=== PATIENT | female | born 1950 | race Caucasian/White ===

== ENCOUNTER 2022-08-13 13:27 | Observation (INO) | payer MEDICARE ==
--- NOTE | 2022-08-13 13:36 | ERPHSYRPT ---
- History of Present Illness Time Seen by Provider: 08/13/22 13:36 Source: patient Exam Limitations: no limitations Physician History: This is a 71-year-old obese white female who was seen at her insurance company yesterday and had physical exam and was found to have significant high blood pressure. She returns today and the blood pressure was even higher. Therefore, they called Dr. Calle's office who recommended that the patient come to the emergency department. The patient's symptoms are mild headache. She denies chest pain. She denies visual changes. The only medication she is taking is Zetia. She does take vitamin D as well. Patient has a history of h yperlipidemia. Timing/Duration: yesterday Severity: moderate Associated Symptoms: headaches (Mild global/diffuse), No abdominal pain, No shortness of breath, No chest pain Allergies/Adverse Reactions: No Known Drug Allergies Allergy (Unverified 08/13/22 13:45) Home Medications: Ezetimibe 10 mg [Zetia 10 MG] 1 tab PO DAILY 08/13/22 [History] Travel Risk - International Travel Have you traveled outside of the country in past 3 weeks: No - Coronavirus Screening Are you exhibiting any of the following symptoms?: No Close contact with a COVID-19 positive Pt in past 14-21 Days: No - Review of Systems Constitutional: No Symptoms Eyes: No Symptoms Ears, Nose, & Throat: No Symptoms Respiratory: No Symptoms Cardiac: No Symptoms Abdominal/Gastrointestinal: No Symptoms Genitourinary Symptoms: No Symptoms Musculoskeletal: No Symptoms Skin: No Symptoms Neurological: No Symptoms Psychological: No Symptoms Endocrine: No Symptoms Hematologic/Lymphatic: No Symptoms Immunological/Allergic: No Symptoms All Other Systems: Reviewed and Negative - Past Medical History Pertinent Past Medical History: Yes - Past Surgical History Past Surgical History: Yes - Nursing Vital Signs Nursing Vital Signs: Initial Vital Signs Temperature 97.9 F 08/13/22 13:46 Pulse Rate 100 H 08/13/22 13:46 Respiratory Rate 19 08/13/22 13:46 Blood Pressure 246/153 08/13/22 13:46 Pain Scale Pain Intensity 0 - Physical Exam General Appearance: no apparent distress, alert, anxiety, obese Eye Exam: PERRL/EOMI, eyes nml inspection Ears, Nose, Throat Exam: normal ENT inspection, moist mucous membranes Neck Exam: normal inspection, non-tender, supple, full range of motion Respiratory Exam: normal breath sounds, lungs clear, airway intact, No chest tenderness, No respiratory distress Cardiovascular Exam: regular rate/rhythm, normal heart sounds, normal peripheral pulses Gastrointestinal/Abdomen Exam: soft, normal bowel sounds, No tenderness Pelvic Exam: not done Rectal Exam: not done Back Exam: normal inspection, normal range of motion, No CVA tenderness, No vertebral tenderness Extremity Exam: normal inspection, normal range of motion, pelvis stable Neurologic Exam: alert, oriented x 3, cooperative, bindery leadperson II-XII nml as tested, normal mood/affect, nml cerebellar function, nml station & gait, sensation nml Skin Exam: normal color, warm, dry Lymphatic Exam: No adenopathy SpO2 Interpretation: normal O2 Delivery: Room Air - Course Nursing assessment & vital signs reviewed: Yes EKG Interpreted by Me: RATE (94), Sinus Rhythm, NORMAL AXIS, NORMAL INTERVALS, NORMAL QRS, NORMAL ST-T, Other (No acute ischemic changes on today's twelve-lead EKG.) Ordered Tests: Active Orders 24 hr Category Date Time Status Hi Ranger Operator STAT Care 08/13/22 14:00 Active EKG-ER Only STAT Care 08/13/22 14:00 Active IV Insertion STAT Care 08/13/22 14:00 Active Pulse Oximetry (ED) STAT Care 08/13/22 14:00 Active HEAD WITHOUT CONTRAST [CT] Stat Exams 08/13/22 13:59 Completed CBC W DIFF Stat Lab 08/13/22 13:45 Completed CMP Stat Lab 08/13/22 13:45 Completed MAGNESIUM Stat Lab 08/13/22 13:45 Completed TROPONIN Q4H Lab 08/13/22 13:45 Completed TROPONIN Q4H Lab 08/13/22 18:00 Ordered TROPONIN Q4H Lab 08/13/22 22:00 Ordered Transfer Order Routine Transfer 08/13/22 Ordered Medication Summary Discontinued Medications Generic Name Dose Route Start Last Admin Trade Name Freq PRN Reason Stop Dose Admin Hydralazine HCl 10 mg 08/13/22 15:47 08/13/22 15:52 Hydralazine Hcl 20 Mg/Ml Vial IV 08/13/22 15:48 10 mg STAT ONE Administration Hydralazine HCl Confirm 08/13/22 15:50 Hydralazine Hcl 20 Mg/Ml Vial Administered 08/13/22 15:51 Dose 20 mg .ROUTE .STK-MED ONE Labetalol HCl 10 mg 08/13/22 14:00 08/13/22 14:04 Labetalol Hcl 20 Mg/4 Ml Disp.Syringe IV 08/13/22 14:01 10 mg STAT ONE Administration Labetalol HCl Confirm 08/13/22 14:04 Labetalol Hcl 20 Mg/4 Ml Disp.Syringe Administered 08/13/22 14:05 Dose 20 mg IV .STK-MED ONE Labetalol HCl 10 mg 08/13/22 14:37 08/13/22 14:41 Labetalol Hcl 20 Mg/4 Ml Disp.Syringe IV 08/13/22 14:38 10 mg STAT ONE Administration Labetalol HCl Confirm 08/13/22 14:41 Labetalol Hcl 20 Mg/4 Ml Disp.Syringe Administered 08/13/22 14:42 Dose 20 mg IV .STK-MED ONE Lab/Rad Data: Laboratory Result Diagrams 08/13/22 13:45 08/13/22 13:45 Laboratory Results 08/13/22 08/13/22 Range/Units 13:45 13:45 WBC 7.2 (4.0-10.5) x10^3/uL RBC 4.67 (4.1-5.4) x10^6/uL Hgb 14.2 (12.0-16.0) g/dL Hct 42.6 (35-47) % MCV 91.2 (78-100) fL MCH 30.4 (26-32) pg MCHC 33.3 (32-36) g/dL RDW 12.4 (11.5-14.0) % Plt Count 243 (150-450) x10^3/uL MPV 9.7 (7.5-11.0) fL Gran % 43.0 (36.0-66.0) % Immature Gran % (Auto) 0.3 (0.00-0.4) % Nucleat RBC Rel Count 0.0 (0.00-0.1) % Eos # (Auto) 0.19 (0-0.5) x10^3/uL Immature Gran # (Auto) 0.02 (0.00-0.03) x10^3u/L Absolute Lymphs (auto) 3.17 (1.0-4.6) x10^3/uL Absolute Monos (auto) 0.65 (0.0-1.3) x10^3/uL Absolute Nucleated RBC 0.00 (0.00-0.01) x10^3u/L Lymphocytes % 44.2 H (24.0-44.0) % Monocytes % 9.1 (0.0-12.0) % Eosinophils % 2.6 (0.00-5.0) % Basophils % 0.8 (0.0-0.4) % Absolute Granulocytes 3.08 (1.4-6.9) x10^3/uL Basophils # 0.06 (0-0.4) x10^3/uL Sodium 138 (137-145) mmol/L Potassium 4.3 (3.5-5.1) mmol/L Chloride 103 (98-107) mmol/L Carbon Dioxide 26 (22-30) mmol/L Anion Gap 13.7 (5-15) MEQ/L BUN 23 H (7-17) mg/dL Creatinine 1.06 H (0.52-1.04) mg/dL Estimated GFR 54.3 ML/MIN Glucose 92 (74-106) mg/dL Calcium 10.6 H (8.4-10.2) mg/dL Magnesium 2.1 (1.6-2.3) mg/dL Total Bilirubin 0.50 (0.2-1.3) mg/dL AST 33 (14-36) U/L ALT 27 (0-35) U/L Alkaline Phosphatase 86 (38-126) U/L Troponin I < 0.012 (0.000-0.034) ng/mL Serum Total Protein 7.6 (6.3-8.2) g/dL Albumin 4.4 (3.5-5.0) g/dL - Progress Progress: improved, re-examined Progress Note: 08/13/22 15:21 CT scan of the head without contrast was interpreted by the radiologist. I reviewed the impression. This study shows a nonacute senile brain. 08/13/22 16:00 This patient's medical issue is 1 of high complexity. The level of the complexity and the work-up performed is based on the review of the patient's p ast medical history, review of the patient's medication list, review of the patient's drug allergy list, history of present illness and physical findings on examination. Work-up includes a CBC, CMP, twelve-lead EKG, troponin level, CAT scan of the head. The work-up results were reviewed by me. I interpreted them. This patient, despite labetalol intravenously on 2 different occasions is having persistently elevated blood pressure with minimal symptoms. Her headache decreased when her systolic blood pressure was in the 180s. She has no visual changes or evidence of any organ damage at this time secondary to the high blood pressure. Her remainder of her work-up is essentially negative. I did speak with Dr. Sanchez, the hospitalist covering for unassigned patients. He accepted this patient for placement in observation on telemetry. We will place her on scheduled antihypertensive agent intravenously and keep her monitored. We will repeat a CMP and CBC in the morning as well as a twelve-lead EKG. Discussed with .: Chantal Counseled pt/family regarding: lab results, diagnosis, rad results Medical Desision Making - Independent Historian Additional History obtained from: Spouse - Discussion of managment Care discussed with:: on-call "doc" Reviewed:: Test results, Need for additional workup Agreed on:: Treatment plan, decision to admit - Diagnostic Testing Diagnostic test were ordered, analyzed, and reviewed by me: Yes Radiological Interpretation: Reviewed by me, Teleradiologist Report - Risk of complications The pt has a high risk of morbidity or mortality based on: Decision regarding hospitilization or escalation of hosp level of care - Departure Departure Disposition: Observation Clinical Impression: Hypertensive urgency Condition: Fair Critical Care Time: Yes Critical Care Time(excluding separately billable procedures): Critical 30-74 mins (45 minutes) Referrals: JOSE E CALLE MD [Primary Care Provider] - Follow up/PCP as directed
[2022-08-13] MEDS ORDERED: TRANDATE 20 MG/4 ML SYRINGE IV ONE ×4 (14:00→14:41)
[2022-08-13 14:04] LABS: Absolute Neutrophil Ct (ANC) 3.08 x10^3/uL (1.4-6.9); BASOPHIL % 0.8 % (0.0-0.4); Basophil (Absolute #) 0.06 x10^3/uL (0-0.4); Eosinophil % 2.6 % (0.00-5.0); Eosinophil (Absolute #) 0.19 x10^3/uL (0-0.5); Hematocrit 42.6 % (35-47); Hemoglobin 14.2 g/dL (12.0-16.0); IMMATURE GRAN # 0.02 x10^3u/L (0.00-0.03); IMMATURE GRAN % 0.3 % (0.00-0.4); Lymphocyte (Absolute #) 3.17 x10^3/uL (1.0-4.6); Lymphocytes % 44.2 % (24.0-44.0); Mean Cell Volume 91.2 fL (78-100); Mean Corpuscular Hemoglobin 30.4 pg (26-32); Mean Corpuscular Hgb Concent. 33.3 g/dL (32-36); Mean Platelet Volume 9.7 fL (7.5-11.0); Monocyte (Absolute #) 0.65 x10^3/uL (0.0-1.3); Monocytes % 9.1 % (0.0-12.0); Platelet Count 243 x10^3/uL (150-450); Red Blood Count 4.67 x10^6/uL (4.1-5.4); Red Cell Distribution Width 12.4 % (11.5-14.0); White Blood Count 7.2 x10^3/uL (4.0-10.5)
[2022-08-13 14:29] LABS: ALBUMIN 4.4 g/dL (3.5-5.0); ALKALINE PHOSPHATASE 86 U/L (38-126); ANION GAP 13.7 MEQ/L (5-15); BLOOD UREA NITROGEN 23 mg/dL (7-17); CHLORIDE 103 mmol/L (98-107); Calcium 10.6 mg/dL (8.4-10.2); Carbon Dioxide 26 mmol/L (22-30); Creatinine 1 1.06 mg/dL (0.52-1.04); EST GLOMERULAR FILTRATION RATE 54.3 ML/MIN; Glucose 92 mg/dL (74-106); MAGNESIUM 2.1 mg/dL (1.6-2.3); Potassium 4.3 mmol/L (3.5-5.1); SGOT/AST 33 U/L (14-36); SGPT/ALT 27 U/L (0-35); SODIUM 138 mmol/L (137-145); TROPONIN < 0.012 ng/mL (0.000-0.034); Total Protein 7.6 g/dL (6.3-8.2)
--- NOTE | 2022-08-13 14:39 | XRAY ---
Indication: Headache. Elevated blood pressure. Multiple contiguous axial images obtained through the head without contrast. Comparison: None Age-appropriate global atrophy and mild periventricular degenerative micro-ischemia bilaterally. No acute intracranial hemorrhage, abnormal extra-axial fluid collection, or mass effect. Fourth ventricle is midline without hydrocephalus. Bony calvarium intact. Visualized paranasal sinuses and mastoid air cells are clear. Impression: Nonacute senile brain.
[2022-08-13] MEDS ORDERED: APRESOLINE 20 MG/ML INJ IV ONE (15:47)
[2022-08-13] MEDS ORDERED: APRESOLINE 20 MG/ML INJ ONE (15:50)
[2022-08-13] MEDS ORDERED: Zofran 4 MG/2 ML VIAL IV PRN (17:58)
[2022-08-13] MEDS: APRESOLINE 20 MG/ML INJ IV PRN (20:29)
[2022-08-13] MEDS: TYLENOL 325 MG PO PRN (20:39)
[2022-08-14 04:45] LABS: Absolute Neutrophil Ct (ANC) 3.48 x10^3/uL (1.4-6.9); BASOPHIL % 0.6 % (0.0-0.4); Basophil (Absolute #) 0.04 x10^3/uL (0-0.4); Eosinophil % 1.4 % (0.00-5.0); Eosinophil (Absolute #) 0.09 x10^3/uL (0-0.5); Hematocrit 42.6 % (35-47); Hemoglobin 13.7 g/dL (12.0-16.0); IMMATURE GRAN # 0.01 x10^3u/L (0.00-0.03); IMMATURE GRAN % 0.2 % (0.00-0.4); Lymphocyte (Absolute #) 2.25 x10^3/uL (1.0-4.6); Lymphocytes % 34.7 % (24.0-44.0); Mean Cell Volume 93.2 fL (78-100); Mean Corpuscular Hgb Concent. 32.2 g/dL (32-36); Mean Platelet Volume 9.6 fL (7.5-11.0); Monocyte (Absolute #) 0.61 x10^3/uL (0.0-1.3); Monocytes % 9.4 % (0.0-12.0); Neutrophil % 53.7 % (36.0-66.0); Platelet Count 217 x10^3/uL (150-450); Red Blood Count 4.57 x10^6/uL (4.1-5.4); Red Cell Distribution Width 12.6 % (11.5-14.0); White Blood Count 6.5 x10^3/uL (4.0-10.5)
[2022-08-14 05:39] LABS: ALBUMIN 4.1 g/dL (3.5-5.0); ANION GAP 14.7 MEQ/L (5-15); BILIRUBIN,TOTAL 0.5 mg/dL (0.2-1.3); Creatinine 1 1.05 mg/dL (0.52-1.04); EST GLOMERULAR FILTRATION RATE 54.9 ML/MIN; Potassium 3.9 mmol/L (3.5-5.1); Total Protein 7.4 g/dL (6.3-8.2)
[2022-08-14] MEDS: APRESOLINE 20 MG/ML INJ IV PRN (06:56)
[2022-08-14] MEDS: TYLENOL 325 MG PO PRN (12:10)
[2022-08-14 12:47] VITALS: PULSE 92; O2SAT 99
[2022-08-14] MEDS ORDERED: Lopressor 25MG Tab PO ONE (13:56)
[2022-08-14] MEDS ORDERED: Naprosyn 500 MG PO ONE (13:58)
[2022-08-14] MEDS ORDERED: Cozaar 50 MG PO ONE (14:00)
[2022-08-14] MEDS ORDERED: hydroDIURIL 25 MG PO ONE (14:15)
[2022-08-14 15:02] VITALS: BP 147/71
== END 2022-08-14 14:56 | disposition home or self-care (01) ==
LOC: ED 13:27 → MED SURG 17:45
PROVIDERS: ADMIT Family Medicine; ATTEND Family Medicine
DX: I16.0 Hypertensive urgency (principal); R51.9 Headache, unspecified; Z79.899 Other long term (current) drug therapy; Z20.828 Contact with and (suspected) exposure to other viral communicable diseases
CPT/HCPCS: 36000; 36415; 70450; 80053; 83735; 84484; 85025; 93005; 93041; 93268; 94760; 96374; 96375; 96376; 99285; 99291; G0378; J0360; J2405; A9270-GY